=== PATIENT | male | born 1950 | race African-American/Black ===

== ENCOUNTER → 2019-09-01 | Outpatient (CLI) | payer OTHER | LOC: SJCVCIMAG 10:59 | DX: R94.31 Abnormal electrocardiogram [ECG] [EKG] (principal); M79.89 Other specified soft tissue disorders; I25.89 Other forms of chronic ischemic heart disease; R60.0 Localized edema; I25.10 Atherosclerotic heart disease of native coronary artery without angina pectoris; I10 Essential (primary) hypertension; E78.00 Pure hypercholesterolemia, unspecified ==

== ENCOUNTER → 2019-12-03 | Outpatient (CLI) | payer OTHER | LOC: SJCVCIMAG 11:12 | PROVIDERS: ATTEND Internal Medicine Cardiovascular Disease | DX: R94.31 Abnormal electrocardiogram [ECG] [EKG] (principal); I11.9 Hypertensive heart disease without heart failure; I25.10 Atherosclerotic heart disease of native coronary artery without angina pectoris; E78.00 Pure hypercholesterolemia, unspecified; Z79.899 Other long term (current) drug therapy; Z87.891 Personal history of nicotine dependence ==

== ENCOUNTER → 2020-12-13 | Outpatient (CLI) | payer OTHER, MEDICARE | LOC: SJCVC 14:59 | PROVIDERS: ATTEND Internal Medicine Cardiovascular Disease | DX: R94.31 Abnormal electrocardiogram [ECG] [EKG] (principal); I49.9 Cardiac arrhythmia, unspecified; I10 Essential (primary) hypertension; I25.10 Atherosclerotic heart disease of native coronary artery without angina pectoris; E78.00 Pure hypercholesterolemia, unspecified; E78.5 Hyperlipidemia, unspecified; M06.9 Rheumatoid arthritis, unspecified; Z79.82 Long term (current) use of aspirin; Z79.899 Other long term (current) drug therapy; Z87.891 Personal history of nicotine dependence; Z82.49 Family history of ischemic heart disease and other diseases of the circulatory system ==

== ENCOUNTER → 2021-03-21 | Outpatient (CLI) | payer OTHER, MEDICARE | LOC: SJCVC 10:35 | PROVIDERS: ATTEND Internal Medicine Cardiovascular Disease | DX: I25.10 Atherosclerotic heart disease of native coronary artery without angina pectoris (principal) ==